=== PATIENT | male | born 1985 | race Caucasian/White ===

== ENCOUNTER 2019-09-20 00:45 | Emergency (ER) | payer BC ==
[~2019-09-20] VITALS: Ht 175.3 cm; Wt 73.0 kg
[2019-09-20] MEDS ORDERED: ONDANSETRON 4MG ODT PO ONE (01:30)
[2019-09-20] MEDS ORDERED: HYDROCODONE/ACETAMINOPHEN 10/325MG TABLET PO ONE (01:30)
[2019-09-20 03:47] VITALS: BP 111/54
== END 2019-09-20 04:07 | disposition home or self-care (01) ==
LOC: ER 00:45
DX: S06.0X0A Concussion without loss of consciousness, initial encounter (principal); S00.33XA Contusion of nose, initial encounter; R04.0 Epistaxis; Y93.71 Activity, boxing; Y92.89 Other specified places as the place of occurrence of the external cause
CPT/HCPCS: 70450; 99284; Q0162